=== PATIENT | male | born 1990 | race Caucasian/White ===

== ENCOUNTER 2018-04-27 08:55 | Emergency (ER) | payer SELFPAY ==
[~2018-04-27] VITALS: Ht 175.3 cm; Wt 100.0 kg
[2018-04-27 09:03] VITALS: BP 167/78; PULSE 120; RESP 18; TEMP 98.9; O2SAT 98
[2018-04-27 09:10] VITALS: BP 167/78; PULSE 117; RESP 20; TEMP 98.9; O2SAT 98
--- NOTE | 2018-04-27 09:57 | PD ---
HPI Chief Complaint: OD/ Ingestion Time Seen by Provider: 09:12 Travel History International Travel<30 days: No Contact w/Intl Traveler<30days: No Traveled to known affect area: No History of Present Illness HPI 27-year-old male presents emergency department for evaluation. Patient states that he smokes some "bad weed" last evening. He has been paranoid since then. His girlfriend states he was acting right so she contacted police and he was brought here for evaluation. Patient denies suicidal or homicidal ideations. He denies any chest pain or tightness. No difficulty breathing. He has no other symptoms to report. [facility] Past Medical History Medical History: Denies Significant Hx Past Surgical History Surgical History: No Previous Surgery Social History Alcohol Use: Yes Tobacco Use: No Substance Use: Yes (MARIJUANA, COCAINE ) Allergies-Medications (Allergen,Severity, Reaction): Coded Allergies: No Known Allergies (Unverified , 04/27/18) Reported Meds & Prescriptions Reported Meds & Active Scripts Active No Active Prescriptions or Reported Medications Review of Systems Except as stated in HPI: all other systems reviewed are Neg Physical Exam Narrative GENERAL: Well-nourished male patient in no acute distress SKIN: Focused skin assessment warm/dry. HEAD: Atraumatic. Normocephalic. EYES: Pupils dilated but equal and round. No scleral icterus. No injection or drainage. ENT: No nasal bleeding or discharge. Mucous membranes pink and moist. NECK: Trachea midline. No JVD. CARDIOVASCULAR: Tachycardic rate and rhythm. No murmur appreciated. RESPIRATORY: No accessory muscle use. Clear to auscultation. Breath sounds equal bilaterally. GASTROINTESTINAL: Abdomen soft, non-tender, nondistended. Hepatic and splenic margins not palpable. MUSCULOSKELETAL: No obvious deformities. No clubbing. No cyanosis. No edema. NEUROLOGICAL: Awake and alert. No obvious cranial nerve deficits. Motor grossly within normal limits. Normal speech. Data Data Last Documented VS Vital Signs Date Time Temp Pulse Resp B/P (MAP) Pulse Ox O2 Delivery O2 Flow Rate FiO2 04/27/18 09:31 04/27/18 09:10 98.9 117 20 98 Room Air Orders Orders Electrocardiogram (04/27/18 ) MDM Medical Decision Making Medical Screen Exam Complete: Yes Emergency Medical Condition: Yes Medical Record Reviewed: Yes Differential Diagnosis Substance abuse versus mood disorder versus personality disorder versus electrolyte abnormality Narrative Course 27-year-old male presents to the emergency department for evaluation. Patient appears without distress. He is tachycardic and his pupils are dilated. Workup is initiated, however patient wants to leave states he needs to get to his girlfriend. The patient he would have to leave AGAINST MEDICAL ADVICE taking full responsibility of anything that may ensue as a result of his choice. AMA: The risks of leaving against medical advice without further evaluation treatment were discussed with the patient. These risks include cardiac dysfunction, cardiac dysrhythmia, possible heart attack, possible stroke or . The patient indicated understanding of these risks and appeared to have the capacity to make this decision. Diagnosis Primary Impression: Substance abuse Patient Instructions: General Instructions Departure Forms: Tests/Procedures Scripts No Active Prescriptions or Reported Meds Disposition: 07 AGAINST MEDICAL ADVICE Condition: Stable Dunia Serrato Apr 27, 2018 09:57
--- NOTE | 2018-04-27 14:44 | EKG ---
Date Performed: 04/27/2018 Time Performed: 09:14:18 PTAGE: 27 years EKG: SINUS TACHYCARDIA WITH SHORT TX INTERVAL VOLTAGE CRITERIA FOR LVH NONSPECIFIC ST & T-WAVE A BNORMALITY ABNORMAL ECG NO PREVIOUS TRACING DOCTOR: Maximus Meneses Interpretating Date/Time 04/27/2018 14:42:12
== END 2018-04-27 10:22 | disposition left against medical advice (07) ==
LOC: NEPD 08:55
DX: F19.10 Other psychoactive substance abuse, uncomplicated (principal); R00.0 Tachycardia, unspecified; R94.31 Abnormal electrocardiogram [ECG] [EKG]; Z53.29 Procedure and treatment not carried out because of patient's decision for other reasons
CPT/HCPCS: 93005; 99283